=== PATIENT | female | born 1975 | race Caucasian/White ===

== ENCOUNTER 2019-05-03 04:56 | Inpatient (IN) ==
[2019-05-03] MEDS ORDERED: SODIUM CHLORIDE 0.9% 1,000 ML IV STA ×2 (05:04→05:32)
[2019-05-03] MEDS ORDERED: ONDANSETRON 4 MG/2 ML VIAL ONE (05:10)
[2019-05-03 05:21] LABS: Basophils # 0.1 10*3/uL (0.0-0.2); Basophils % 0.5 % (0.0-0.8); Eosinophils # 0.3 10*3/uL (0.0-0.87); Eosinophils % 1.5 % (0.00-10.9); Hematocrit 42.8 VOL% (35.7-47.0); Immature Granulocytes % 0.7 %; Immature Granulocytes Absolute 0.14 #; Lymphocytes # 5.3 10*3/uL (1.4-4.0); Mean Corpuscular HGB Conc 32.7 GM/DL (32-36); Mean Corpuscular Volume 82.8 FL (87-102); Mean Platelet Volume 12.1 FL (9.6-12.0); Monocytes % 6.4 % (1.7-12.7); Neutrophils % 65.9 % (38.7-73.9); Platelet Count 352 T/CUMM (130-400); Red Blood Count 5.17 MC/CUMM (3.8-5.5); Red Cell Distribution Width 14.6 % (9.3-17.3); White Blood Count 21.1 T/CUMM (4-12)
[2019-05-03] MEDS ORDERED: VANCOMYCIN INJ 1,000 MG in SODIUM CHLORIDE 0.9% 250 ML IV STA (05:33)
[2019-05-03] MEDS ORDERED: CEFEPIME 2,000 MG in SODIUM CHLORIDE 0.9% 100 ML IV STA ×2 (05:33→05:35)
[2019-05-03] MEDS ORDERED: NOREPINEPHRINE 8 MG in SODIUM CHLORIDE 0.9% 242 ML IV PRN ×2 (05:34→07:34)
[2019-05-03 05:41] LABS: Alanine Aminotransferase 78 U/L (13-56); Albumin 3.2 G/DL (3.4-5.0); Alkaline Phosphatase 171 U/L (45-117); Aspartate Amino Transferase 55 U/L (0-37); Blood Urea Nitrogen 13 MG/DL (7-18); Calcium 8.9 MG/DL (8.5-10.1); Estimated Glom Filtration Rate 58 ML/MIN; Glucose 237 MG/DL (74-106); Osmolality,Calculated 277.1 MOS/KG (273-304); Total Protein 6.5 G/DL (6.4-8.3)
[2019-05-03] MEDS ORDERED: ONDANSETRON 4 MG/2 ML VIAL IV STA (05:48)
[2019-05-03 05:49] LABS: Eosinophils 2 % (0-10); Lymphocytes 26 % (20-55); Segmented Neutrophils 69 % (50-85); Total Cells Counted 100
[2019-05-03 05:50] LABS: Anisocytosis 1+; Platelet Estimate Adequate
[2019-05-03 07:28] LABS: Apearance,Urine CLEAR (Clear); Bacteria,Urine Occasional /HPF (Few); Bilirubin,Urine Negative (Negative); Blood, Urine Negative (Negative); Glucose,Urine (UA) Negative (Negative); Ketones,Urine Negative (Negative); Nitrite,Urine Negative (Negative); Protein,Urine Negative; Squamous Epithelial Cell,Urine Occasional /HPF (0-10); Urine Color Yellow (Yellow); Urine Specific Gravity 1.005 (1.001-1.035); Urine Urobilinogen < 2.0 EU/DL (0.2-1.0)
[2019-05-03] MEDS ORDERED: MORPHINE 4 MG/1 ML VIAL IV PRN (07:34)
[2019-05-03] MEDS ORDERED: MAGNESIUM SULF RIDER 4 GM in PREMIX 1 EACH IV PRN (07:34)
[2019-05-03] MEDS ORDERED: ONDANSETRON 4 MG/2 ML VIAL IV PRN (07:34)
[2019-05-03] MEDS ORDERED: MAGNESIUM SULF RIDER 2 GM in PREMIX 1 EACH IV PRN (07:34)
[2019-05-03] MEDS ORDERED: ACETAMINOPHEN 325 MG TABLET PO PRN (07:34)
[2019-05-03] MEDS: CIPROFLOXACIN INJ 400 MG in PREMIX 1 EACH IV SCH ×2 (08:43→20:51)
[2019-05-03] MEDS: metroNIDAZOLE INJ 500 MG in PREMIX 1 EACH IV SCH ×3 (08:43→19:24)
[2019-05-03] MEDS: PANTOPRAZOLE 40 MG TABLET PO SCH (08:44)
[2019-05-03] MEDS: SODIUM CHLORIDE 0.9% 1,000 ML IV SCH ×3 (08:44→18:51)
[2019-05-03] MEDS ORDERED: PROMETHAZINE 25 MG/1 ML VIAL IM PRN (09:43)
[2019-05-03] MEDS ORDERED: GLUCAGON 1 MG VIAL IM PRN (10:52)
[2019-05-03] MEDS ORDERED: DEXTROSE 50% 25 GM/50 ML VIAL IV PRN (10:52)
[2019-05-03] MEDS: INSULIN LISPRO 100 UNIT/ML SUBCUT SCH ×2 (13:10→18:50)
[2019-05-03 13:16] LABS: Hepatitis B Surface Ag Quant < 0.10 Index; Hepatitis B Surface Ag Result Negative (Negative); Hepatitis C Virus Ab Quant < 0.02 Index; Hepatitis C Virus Ab Result Negative (Negative)
[2019-05-03 17:38] LABS: Barbiturates Screen,Urine Negative (Negative); Benzodiazepines Screen,Urine Negative (Negative); Cannabinoid Screen,Urine Negative (Negative); Opiate Screen,Urine Negative (Negative); Phencyclidine Screen,Urine Negative (Negative)
[2019-05-03] MEDS ORDERED: ATORVASTATIN 80 MG TABLET PO SCH (21:00)
[2019-05-04] MEDS: INSULIN LISPRO 100 UNIT/ML SUBCUT SCH ×3 (00:23→13:25)
[2019-05-04] MEDS: metroNIDAZOLE INJ 500 MG in PREMIX 1 EACH IV SCH ×2 (02:00→08:12)
[2019-05-04] MEDS: SODIUM CHLORIDE 0.9% 1,000 ML IV SCH ×3 (02:02→08:13)
[2019-05-04 05:39] LABS: Basophils % 0.3 % (0.0-0.8); Eosinophils # 0.1 10*3/uL (0.0-0.87); Eosinophils % 0.7 % (0.00-10.9); Hematocrit 32.5 VOL% (35.7-47.0); Hemoglobin 10.5 GM/DL (12.0-16.0); Immature Granulocytes % 0.2 %; Immature Granulocytes Absolute 0.03 #; Lymphocytes # 4.1 10*3/uL (1.4-4.0); Lymphocytes % 28.6 % (21.3-54.2); Mean Corpuscular HGB Conc 32.3 GM/DL (32-36); Mean Corpuscular Volume 83.1 FL (87-102); Mean Platelet Volume 12.7 FL (9.6-12.0); Monocytes % 6.6 % (1.7-12.7); Neutrophils % 63.6 % (38.7-73.9); Platelet Count 279 T/CUMM (130-400); Red Blood Count 3.91 MC/CUMM (3.8-5.5); Red Cell Distribution Width 14.9 % (9.3-17.3); White Blood Count 14.2 T/CUMM (4-12)
[2019-05-04 06:07] LABS: Albumin 2.4 G/DL (3.4-5.0); Bilirubin,Total 0.9 MG/DL (0.2-1.0); Calcium 7.4 MG/DL (8.5-10.1); Osmolality,Calculated 273.5 MOS/KG (273-304); Total Protein 5.3 G/DL (6.4-8.3)
[2019-05-04] MEDS: POTASSIUM CHLORIDE RIDER 10 MEQ in PREMIX 1 EACH IV PRN ×3 (06:39→10:16)
[2019-05-04] MEDS: CIPROFLOXACIN INJ 400 MG in PREMIX 1 EACH IV SCH (09:16)
[2019-05-04] MEDS: PANTOPRAZOLE 40 MG TABLET PO SCH (09:53)
[2019-05-04 12:19] VITALS: BP 125/79
[2019-05-05] MEDS ORDERED: BISACODYL 5 MG TABLET PO ONE (12:00)
[2019-05-05] MEDS ORDERED: POLYETHYLENE GLYCOL POWDER 255 GM BOTTLE PO ONE (18:00)
[2019-05-06] MEDS ORDERED: SODIUM PHOSPHATE ENEMA 133 ML BOTTLE RECTAL ONE (06:00)
[2019-05-06] MEDS ORDERED: LACTATED RINGERS 1,000 ML IV SCH (08:00)
== END 2019-05-04 14:30 | disposition home or self-care (01) | DRG 392 ==
LOC: EDBD → EDUNIT# → N.ED 04:56 → N.EDINP 07:33 → SUATTDRO 07:33 → N.EDINP 08:21 → N.ICU 08:40 → N.3E 14:48
PROVIDERS: ADMIT Internal Medicine; ATTEND Internal Medicine